=== PATIENT | female | born 1960 | race Hispanic/Latino ===

== ENCOUNTER 2021-02-12 06:57 | Emergency (ER) | payer OTHER ==
[2021-02-12 07:14] LABS: BASOPHILS % (AUTO) 0.3 % (0.0-5.0); EOSINOPHILS % (AUTO) 0.6 % (0.0-8.0); HEMATOCRIT 43.3 % (36-48); LYMPHOCYTES % (AUTO) 5.6 % (21.0-51.0); MEAN CORPUSCULAR HEMOGLOBIN 25.7 pg (27.0-33.0); MEAN CORPUSCULAR HGB CONC 31.9 g/dL (32.0-36.0); MEAN CORPUSCULAR VOLUME 80.5 fL (79-99); MONOCYTES % (AUTO) 6.4 % (3.0-13.0); NEUTROPHILS % (AUTO) 86.8 % (40.0-77.0); PLATELET COUNT (AUTO) 266 K/uL (130-400); RED BLOOD CELL COUNT(AUTO) 5.38 MIL/uL (4.00-5.50); RED CELL DISTRIBUTION WIDTH 15.5 % (11.0-15.5); WHITE BLOOD COUNT (AUTO) 12.3 K/uL (4.8-10.8)
[2021-02-12 07:26] LABS: ALBUMIN 3.3 g/dL (3.5-5.0); BILIRUBIN,TOTAL 0.7 mg/dL (0.2-1.0); CREATININE 0.8 mg/dL (0.5-1.5); TOTAL PROTEIN, SERUM 7.3 g/dL (6.0-8.3)
[2021-02-12] MEDS ORDERED: KETOROLAC TROMETHAMINE 15MG/ML ONE (08:27)
[2021-02-12] MEDS ORDERED: ZOSYN 3.375GM+NS 50ML 50 ML IV ONE (08:27)
[2021-02-12] MEDS ORDERED: ONDANSETRON HCL 4 MG/2 ML VIAL ONE (08:27)
[2021-02-12] MEDS ORDERED: FAMOTIDINE/PF 20 MG/2 ML VIAL IV ONE (08:28)
[2021-02-12 10:07] LABS: APPEARANCE,URINE Cloudy (CLEAR); BILIRUBIN,URINE Negative (NEGATIVE); COLOR,URINE Yellow (YELLOW); GLUCOSE, URINE (UA) >=1000 mg/dL (NEGATIVE); KETONES,URINE Negative (NEGATIVE); LEUKOCYTE ESTERASE ,URINE Small (NEGATIVE); NITRATE,URINE Negative (NEGATIVE); OCCULT BLOOD,URINE Small (NEGATIVE); PROTEIN,URINE Negative (NEGATIVE); UROBILINOGEN,URINE 0.2 mg/dL (0.2-1.0)
[2021-02-12 10:20] LABS: BACTERIA,URINE Many /HPF (None Seen); WBC,URINE 26-50 /HPF (0-1)
== END 2021-02-12 11:55 | disposition home or self-care (01) ==
LOC: EDH 06:57
DX: E86.0 Dehydration (principal); N30.00 Acute cystitis without hematuria; E11.9 Type 2 diabetes mellitus without complications; E78.00 Pure hypercholesterolemia, unspecified; Z90.49 Acquired absence of other specified parts of digestive tract
CPT/HCPCS: 36415; 71045; 74176; 80053; 81001; 82150; 83690; 85025; 87077; 87088; 87186; 96365; 96366; 96375; 99285; J1885; J2405; J2543; J3490

== ENCOUNTER 2025-03-22 09:16 | Emergency (ER) | payer BC ==
[~2025-03-22] VITALS: Ht 152.4 cm; Wt 88.5 kg
[2025-03-22 09:55] LABS: BASOPHILS # (AUTO) 0.02 K/uL (0.00-0.20); BASOPHILS % (AUTO) 0.3 % (0.0-5.0); EOSINOPHILS # (AUTO) 0.13 K/uL (0.00-0.70); EOSINOPHILS % (AUTO) 2.1 % (0.0-8.0); HEMATOCRIT 33.5 % (36-48); IMMATURE GRANULOCYTE ABSOLUTE 0.02 K/uL (0-1); LYMPHOCYTES # (AUTO) 1.3 K/uL (1.0-4.8); LYMPHOCYTES % (AUTO) 20.3 % (21.0-51.0); MEAN CORPUSCULAR HGB CONC 32.2 g/dL (32.0-36.0); MEAN CORPUSCULAR VOLUME 83.8 fL (79-99); MONOCYTES # (AUTO) 0.6 K/uL (0.1-1.0); MONOCYTES % (AUTO) 8.8 % (3.0-13.0); NEUTROPHILS # (AUTO) 4.3 K/uL (1.8-7.7); NEUTROPHILS % (AUTO) 68.2 % (40.0-77.0); PLATELET COUNT (AUTO) 209 K/uL (130-400); RED CELL DISTRIBUTION WIDTH 13.6 % (11.0-15.5); WHITE BLOOD COUNT (AUTO) 6.3 K/uL (4.8-10.8)
[2025-03-22 10:03] LABS: INR 1.02 (0.85-1.15); PROTHROMBIN TIME 10.8 SEC (9.6-11.6)
[2025-03-22 10:04] LABS: PARTIAL THROMBOPLASTIN TIME 28.8 SEC (26.3-35.5)
[2025-03-22 10:07] LABS: ALBUMIN 3.2 g/dL (3.5-5.0); BILIRUBIN,DIRECT 0.1 mg/dL (0.0-0.3); BILIRUBIN,TOTAL 0.5 mg/dL (0.2-1.0); CREATININE 0.8 mg/dL (0.5-1.0); POTASSIUM 4.1 mmol/L (3.5-5.1); TOTAL PROTEIN, SERUM 6.6 g/dL (6.0-8.3)
--- NOTE | 2025-03-22 11:02 | HMCIMG ---
Exam Type: CT NECK SOFT TISS W/O CONTRAST Clinical Information: left facial swelling Comparison Study: none PROTOCOL: Photography is done at 5 millimeter thick intervals for the head. The study was performed in the axial plane, and reconstructed and photographed in sagittal and coronal planes as well. Findings: FINDINGS: The left parotid gland is enlarged when compared to the right and there is evidence of parotid stranding and these findings are consistent with acute left parotiditis. No lymphadenopathy is seen. No fluid collections or masses are identified. Medial course in deviation of the left common carotid artery seen, within the retropharyngeal space. The vascular, muscular, as well as subcutaneous structures are otherwise preserved. No significant paranasal sinus pathology is seen. The base of the skull is unremarkable. I see no significant upper airway abnormalities. IMPRESSION: Acute left parotiditis. This study was performed using dose reduction techniques to include automated exposure control and/or adjustment of the mA and/or kV according to patient size.
[2025-03-22] MEDS: 0.9% NACL 500ML IV.SOLN 500 ML IV ONE (11:19)
[2025-03-22] MEDS: AMP/SULBAC 3GM+NS 100ML IV STA (11:19)
[2025-03-22 11:24] VITALS: TEMP 98.3
--- NOTE | 2025-03-22 11:32 | ERN ---
ED Note History of Present Illness Stated Complaint: LEFT EAR PAIN, LEFT CHEEK SWELLING Chief Complaint: Multiple Complaints Time Seen by MD: 09:20 Dictation: 64-year-old female with a history of DM presents to the ED for evaluation of left cheek discomfort onset this morning. Patient reports left ear pain, cheek swelling, but denies any fever or any other associated symptoms at this time. Patient says she was fine last night and woke up this morning with swelling over her left mandible area. Allergies: Coded Allergies: No Known Allergies (Unverified Allergy, Unknown, 03/22/25) Home Meds Active Scripts Naproxen (Naproxen) 250 Mg Tablet, 250 MG PO BID for 5 Days, #10 TAB Prov:FLORI SIMS MD 03/22/25 Clindamycin HCl (Clindamycin HCl) 300 Mg Capsule, 1 CAP PO QID for 10 Days, #40 CAP 0 Refills Prov:FLORI SIMS MD 03/22/25 Past Medical History Past Medical History: Diabetes-Type II, Hypertension Surgical History: Other Surgical History Other: LEFT FEMUR SX Review of System Dictation Constitutional: Negative for fever,chills, and weight loss Eyes: Positive for left ear pain code Negative for injury,redness, and discharge ENT: Positive for left cheek swelling, pain Negative for injury Cardiovascular: Negative for chest pain, palpitations, and edema Respiratory: Negative for shortness of breath, cough, and wheezing, Abdomen/GI: Negative for abdominal pain, nausea, vomiting, diarrhea, and constipation Back: Negative for injury and pain : Negative for injury, bleeding and discharge MS/Extremity: Negative for injury and deformity Skin: Negative for rash, and discoloration Neuro: Negative for headache, weakness, numbness, tingling, and seizure Psych: Negative for suicide ideation, homicidal ideation, and hallucinations Initial Vital Sign VS Vital Signs Date Time Temp Pulse Resp B/P (MAP) Pulse Ox O2 Delivery O2 Flow Rate FiO2 03/22/25 09:17 99.3 90 14 150/67 98 Room Air 0 03/22/25 09:31 21 Physical Exam Dictation General: awake, alert, NAD Head/Face: Normocephalic, atraumatic Eyes: PERRL, EOMI, vision at baseline ENT: Left mandible area swelling and tenderness. Mild dental caries Neck: Trachea midline, supple, no nuchal rigidity Cardiovascular: RRR, normal S1/S2, No MRGs, no JVD Respiratory: CTAB, no respiratory distress, No rales or wheezes Abdomen: Soft, non-tender, non-distended, normal bowel sounds, no guarding or rebound. Skin: Warm, dry, normal turgor, no rash MS/Extremity: Pulses equal, no cyanosis, neurovascular intact, FROM Neuro: COAx4, GCS 15, strength 5/5, CN 2-12 intact, normal cerebellar exam, normal gait, Psych: Normal behavior, mood, and affect normal Results (Laboratory/Radiology) Laboratory/Radiology Laboratory Tests Test 03/22/25 09:46 White Blood Count 6.3 K/uL (4.8-10.8) Red Blood Count 4.00 MIL/uL (4.00-5.50) Hemoglobin 10.8 g/dL (12.0-16.0) L Hematocrit 33.5 % (36-48) L Mean Corpuscular Volume 83.8 fL (79-99) Mean Corpuscular Hemoglobin 27.0 pg (27.0-33.0) Mean Corpuscular Hemoglobin Concent 32.2 g/dL (32.0-36.0) Red Cell Distribution Width 13.6 % (11.0-15.5) Platelet Count 209 K/uL (130-400) Mean Platelet Volume 9.8 fL (7.5-10.5) Immature Granulocyte % (Auto) 0.3 % (0-1) Neutrophils (%) (Auto) 68.2 % (40.0-77.0) Lymphocytes (%) (Auto) 20.3 % (21.0-51.0) L Monocytes (%) (Auto) 8.8 % (3.0-13.0) Eosinophils (%) (Auto) 2.1 % (0.0-8.0) Basophils (%) (Auto) 0.3 % (0.0-5.0) Neutrophils # (Auto) 4.3 K/uL (1.8-7.7) Lymphocytes # (Auto) 1.3 K/uL (1.0-4.8) Monocytes # (Auto) 0.6 K/uL (0.1-1.0) Eosinophils # (Auto) 0.13 K/uL (0.00-0.70) Basophils # (Auto) 0.02 K/uL (0.00-0.20) Absolute Immature Granulocyte (auto 0.02 K/uL (0-1) Nucleated Red Blood Cells 0.0 % (0.0-0.19) Prothrombin Time 10.8 SEC (9.6-11.6) Prothromb Time International Ratio 1.02 (0.85-1.15) Activated Partial Thromboplast Time 28.8 SEC (26.3-35.5) Sodium Level 139 mmol/L (136-145) Potassium Level 4.1 mmol/L (3.5-5.1) Chloride Level 103 mmol/L (101-111) Carbon Dioxide Level 27 mmol/L (21-32) Blood Urea Nitrogen 15 mg/dL (7-18) Creatinine 0.8 mg/dL (0.5-1.0) Glomerular Filtration Rate Calc 82 mL/min (>90) Random Glucose 137 mg/dL (70-105) H Total Calcium 8.9 mg/dL (8.5-10.1) Total Bilirubin 0.5 mg/dL (0.2-1.0) Direct Bilirubin 0.1 mg/dL (0.0-0.3) Aspartate Amino Transf (AST/SGOT) 12 U/L (10-37) Alanine Aminotransferase (ALT/SGPT) 12 U/L (12-78) Alkaline Phosphatase 80 U/L (50-136) Total Protein 6.6 g/dL (6.0-8.3) Albumin 3.2 g/dL (3.5-5.0) L Labs Reviewed?: Yes CT Scan Comment: REASON: left facial swelling ORDERING PHYSICIAN: FLORI SIMS MD PROCEDURE: NKSOFTI WO - CT NECK SOFT TISS W/O CONTRAST Exam Type: CT NECK SOFT TISS W/O CONTRAST Clinical Information: left facial swelling Comparison Study: none PROTOCOL: Photography is done at 5 millimeter thick intervals for the head. The study was performed in the axial plane, and reconstructed and photographed in sagittal and coronal planes as well. Findings: FINDINGS: The left parotid gland is enlarged when compared to the right and there is evidence of parotid stranding and these findings are consistent with acute left parotiditis. No lymphadenopathy is seen. No fluid collections or masses are identified. Medial course in deviation of the left common carotid artery seen, within the retropharyngeal space. The vascular, muscular, as well as subcutaneous structures are otherwise preserved. No significant paranasal sinus pathology is seen. The base of the skull is unremarkable. I see no significant upper airway abnormalities. IMPRESSION: Acute left parotiditis. This study was performed using dose reduction techniques to include automated exposure control and/or adjustment of the mA and/or kV according to patient size. DICTATED BY: CARIN DONG MD DATE: 03/22/25 1058 ED Course ED Course Orders Procedure Category Date Status Time Cbc With Differential LAB 03/22/25 Complete 09:45 Basic Metabolic Panel LAB 03/22/25 Complete 09:45 Hepatic Function Panel LAB 03/22/25 Complete 09:45 Pt And Ptt LAB 03/22/25 Complete 09:45 Ct Neck Soft Tiss W/O CT 03/22/25 Resulted Contrast 10:18 Amp/Sulbac 3gm+Ns PHA 03/22/25 Complete 100ml (Unasyn 3gm+Ns 1 10:18 0.9% Nacl 500ml PHA 03/22/25 Complete Iv.Soln (Ns 500ml 10:30 Current Medications Medications (Trade) Dose Ordered Sig/[place] Route PRN Reason Start Time Stop Time Status Last Admin Dose Admin Ampicillin Sodium/ Sulbactam Sodium (Unasyn 3gm+NS 100ml) 3 gm ONCE STAT IV 03/22/25 10:18 03/22/25 10:24 DC 03/22/25 11:19 Sodium Chloride 500 ml @ 0 mls/hr ONCE ONCE IV 03/22/25 10:30 03/22/25 10:31 DC 03/22/25 11:19 Vital Signs Date Time Temp Pulse Resp B/P (MAP) Pulse Ox O2 Delivery O2 Flow Rate FiO2 03/22/25 11:24 98.2 71 12 104/59 98 Room Air* 0 21 03/22/25 09:31 99.0 86 14 124/56 98 Room Air* 0 21 03/22/25 09:17 99.3 90 14 150/67 98 Room Air 0 Medical Decision Making MDM MDM: Differential diagnosis: parotiditis, cellulitis Rationale: Tests considered and ordered secondary to shared decision making include: labs, ECG and radiology. Risk of complication and/or morbidity or mortality of patient management: None Medications-Per medication reconciliation Need for hospitalization: Patient does meet criteria for hospitalization. Need for emergency major/minor surgery: No There are no social concerns with this patient. Prescription drug management Prescriptions will include symptomatic care I independently interpreted the test that were performed, results were reviewed by me and considered findings on radiology if ordered. DX & DISP Disposition: Discharge Departure Impression: Primary Impression: Parotiditis Condition: Stable Scripts Naproxen (Naproxen) 250 Mg Tablet 250 MG PO BID for 5 Days, #10 TAB Prov: FLORI SIMS MD 03/22/25 Clindamycin HCl (Clindamycin HCl) 300 Mg Capsule 1 CAP PO QID for 10 Days, #40 CAP 0 Refills Prov: FLORI SIMS MD 03/22/25 Referrals: GENA CHANG MD (PCP) FLORI SIMS MD March 22, 2025 11:32
[2025-03-22] MEDS ORDERED: NAPR-1196 PO (12:38)
[2025-03-22] MEDS ORDERED: CLIN-141 PO (12:38)
[2025-03-22 13:52] VITALS: BP 154/61; PULSE 68; RESP 16; O2SAT 98
== END 2025-03-22 13:55 | disposition home or self-care (01) ==
LOC: EDH 09:16
DX: K11.21 Acute sialoadenitis (principal); E11.9 Type 2 diabetes mellitus without complications; I10 Essential (primary) hypertension; Z79.899 Other long term (current) drug therapy
CPT/HCPCS: 99284; 96365; 70490; 80076; 80048; 85025; 85610; 85730; 36415; J7040; J0295